=== PATIENT | female | born 1985 | race Caucasian/White ===

== ENCOUNTER 2020-11-14 08:29 | Outpatient (CLI) | payer OTHER ==
[2020-11-14 17:56] LABS: SARS-CoV-2 PCR by NAA Not Detected (NotDetected)
== END 2020-11-14 08:30 | disposition home or self-care (01) ==
LOC: CSHLAB 08:29
PROVIDERS: ATTEND Obstetrics & Gynecology
DX: Z20.822 Contact with and (suspected) exposure to COVID-19 (principal)
CPT/HCPCS: 87635; U0003; U0005

== ENCOUNTER 2020-11-19 00:32 | Inpatient (IN) | payer OTHER ==
[2020-11-19 00:59] VITALS: BMI 30.8
[2020-11-19] MEDS ORDERED: Butorphanol Tartrate 1 MG/ML VIAL SLOW IVP PRN (01:15)
[2020-11-19] MEDS ORDERED: Promethazine HCl 25 MG/ML VIAL IM PRN ×3 (01:15→10:50)
[2020-11-19] MEDS ORDERED: HYDROcodone/Acetaminophen 5/325 mg Tablet PO PRN ×4 (01:15→10:50)
[2020-11-19] MEDS ORDERED: Lidocaine 1% (PF) 30 ML VIAL SC PRN (01:15)
[2020-11-19] MEDS ORDERED: NS / Oxytocin 40 units/1000ml 1,000 ML IV PRN (01:15)
[2020-11-19] MEDS ORDERED: Ondansetron PF 4 MG/2 ML Vial IVP PRN ×3 (01:15→10:50)
[2020-11-19] MEDS ORDERED: Ibuprofen 800 MG TAB PO PRN (01:15)
[2020-11-19] MEDS ORDERED: hydrALAZINE 20 MG/ML VIAL SLOW IVP PRN ×2 (01:15→10:50)
[2020-11-19] MEDS ORDERED: Fentanyl 4 mcg/Bup 0.1% Cadd 100 ML ONE (01:22)
[2020-11-19] MEDS ORDERED: NS w/ Oxytocin 30 units 500 ML IV PRN (01:23)
[2020-11-19 01:33] LABS: Hemoglobin 11.3 g/dL (12.0-15.5); Mean Corpuscular HGB CONC 34.8 g/dL (32.0-36.0); Mean Corpuscular Hemoglobin 31.7 pg (27.0-33.0); Mean Corpuscular Volume 91.3 fl (81.6-98.3); Mean Platelet Volume 10.8 fl (7.4-10.4); Platelet Count 209 10x3/uL (150-450); RBC Distribution Width 14.2 % (11.5-14.5); Red Blood Cell (RBC) Count 3.56 10x6/uL (3.90-5.03); White Blood Cell (WBC) Count 9.3 10x3/uL (3.5-10.5)
[2020-11-19 02:04] LABS: Hep B Surf Ag Non-Reactive S/CO (NonReactive)
[2020-11-19 02:05] LABS: Syphilis Antibody Nonreactive (Nonreactive); Syphilis Antibody Index 0.03 S/CO (<1.00 Non-Reactive)
[2020-11-19] MEDS: Lactated Ringer's 1,000 ML IV SCH ×2 (02:18→03:26)
[2020-11-19 02:31] LABS: HBSAg Index 0.14 S/CO (0-0.99)
[2020-11-19] MEDS ORDERED: Lactated Ringer's 500 ML IV PRN (02:43)
[2020-11-19] MEDS ORDERED: diphenhydrAMINE 50 MG/ML VIAL IVP PRN (02:43)
[2020-11-19] MEDS ORDERED: Naloxone HCl 0.4 mg/ml Vial IVP PRN ×2 (02:43)
[2020-11-19] MEDS ORDERED: Acetaminophen 325 MG TAB PO PRN (02:43)
[2020-11-19] MEDS ORDERED: ePHEDrine 50 MG/ML VIAL SLOW IVP PRN (02:43)
[2020-11-19] MEDS ORDERED: Hydrocerin (Eucerin) Cream 120 gm Jar TOP PRN (02:43)
[2020-11-19] MEDS ORDERED: Communication Order-Pharmacy FS SCH (02:45)
[2020-11-19] MEDS ORDERED: Fentanyl 4 mcg/Bupivacaine 0.1% Cassette 100 ML EPIDURAL SCH (02:45)
[2020-11-19] MEDS ORDERED: Adacel (T-DAP) 0.5 ML SYRINGE IM ONE (10:50)
[2020-11-19] MEDS ORDERED: Milk Of Magnesia 30 ML UDCUP PO PRN (10:50)
[2020-11-19] MEDS ORDERED: Bisacodyl 10 MG SUPP PR PRN (10:50)
[2020-11-19] MEDS ORDERED: Benzocaine-Menthol 82.5 ML CAN TOP PRN (10:50)
[2020-11-19] MEDS ORDERED: diphenhydrAMINE 25 MG CAP PO PRN (10:50)
[2020-11-19] MEDS ORDERED: Preparation H Ointment 28 GM TUBE PR PRN (10:50)
[2020-11-19] MEDS ORDERED: Lanolin Ointment 7 GM TUBE TOP PRN (10:50)
[2020-11-19] MEDS ORDERED: Ferrous Sulfate 325 MG TAB PO SCH (11:15)
[2020-11-19] MEDS ORDERED: Prenatal Vitamin 1 TAB PO SCH (11:15)
[2020-11-19] MEDS ORDERED: Docusate Calcium (SURFAK) 240 MG CAP PO SCH (11:15)
[2020-11-19] MEDS ORDERED: NS w/ Oxytocin 30 units 500 ML IVPB SCH (11:15)
[2020-11-19] MEDS: Ibuprofen 800 MG TAB PO SCH ×2 (13:47→21:30)
[2020-11-19] MEDS: Ferrous Sulfate 325 MG TAB PO SCH (17:23)
[2020-11-19] MEDS: Docusate Calcium (SURFAK) 240 MG CAP PO SCH (21:30)
[2020-11-20] MEDS: Ibuprofen 800 MG TAB PO SCH (05:02)
[2020-11-20 07:43] VITALS: BP 93/51; TEMP 97.9
[2020-11-20 08:27] LABS: Hemoglobin 12.2 g/dL (12.0-15.5)
[2020-11-20] MEDS ORDERED: Prenatal Vitamin 1 TAB PO SCH (09:00)
[2020-11-20] MEDS: Docusate Calcium (SURFAK) 240 MG CAP PO SCH (09:12)
[2020-11-20] MEDS: Ferrous Sulfate 325 MG TAB PO SCH (09:13)
== END 2020-11-20 11:55 | disposition home or self-care (01) | DRG 807 ==
LOC: UNDOADMIN 00:32 → CSHLD 00:32 → CSHPED 12:50
PROVIDERS: ADMIT Obstetrics & Gynecology; ATTEND Obstetrics & Gynecology
PROC: 10E0XZZ Delivery of Products of Conception, External Approach (ICD-10-PCS; principal; 2020-11-19)
PROC: 0KQM0ZZ Repair Perineum Muscle, Open Approach (ICD-10-PCS; 2020-11-19)
PROC: 10907ZC Drainage of Amniotic Fluid, Therapeutic from Products of Conception, Via Natural or Artificial Opening (ICD-10-PCS; 2020-11-19)
DX: O99.344 Other mental disorders complicating childbirth (principal); Z37.0 Single live birth; F32.9 Major depressive disorder, single episode, unspecified; F41.9 Anxiety disorder, unspecified; Z3A.39 39 weeks gestation of pregnancy; O70.1 Second degree perineal laceration during delivery; Z20.822 Contact with and (suspected) exposure to COVID-19
CPT/HCPCS: 36415; 51702; 85014; 85018; 85027; 86780; 86850; 86900; 86901; 87340; 99285; J2590; J7030